=== PATIENT | male | born 1995 | race Two or more races ===

== ENCOUNTER 2016-10-31 18:35 | Emergency (ER) | payer SELFPAY ==
--- NOTE | 2016-10-31 18:47 | ER Document Report ---
ED Medical Screen (RME) - General Stated Complaint: COLLAR BONE PAIN Notes: wrestling for fun last Pain at his right SC joint able to move arm but painful I have greeted and performed a rapid initial assessment of this patient. A comprehensive ED assessment and evaluation of the patient, analysis of test results and completion of the medical decision making process will be conducted by additional ED providers. - Related Data Allergies/Adverse Reactions: No Known Allergies Allergy (Verified 07/20/12 19:41) Past Medical History Psychiatric Medical History: Reports: Hx Attention Deficit Hyperactivity Disorder - Immunizations Immunizations up to date: Yes Hx Diphtheria, Pertussis, Tetanus Vaccination: Yes Physical Exam - Vital signs Vitals: Temp Pulse Resp BP Pulse Ox 98.1 F 90 18 126/73 H 100 10/31/16 18:43 10/31/16 18:43 10/31/16 18:43 10/31/16 18:43 10/31/16 18:43 Course - Vital Signs Vital signs: Temp Pulse Resp BP Pulse Ox 98.1 F 90 18 126/73 H 100 10/31/16 18:43 10/31/16 18:43 10/31/16 18:43 10/31/16 18:43 10/31/16 18:43
[2016-10-31] MEDS ORDERED: IBUPROFEN 800 MG TABLET PO ONE (18:48)
[2016-10-31] MEDS ORDERED: HYDROCODONE/ACETAMINOPHEN 5-325 MG 6 TAB/DSPK PO PRN (20:51)
--- NOTE | 2016-10-31 20:52 | ER Document Report ---
HPI - HPI Patient complains to provider of: right shoulder pain Pain Level: 5 Context: Patient is a 21-year-old male that comes emergency department for chief complaint of pain to the right collarbone area at the insertion at the sternum, patient states he was wrestling and the night after wrestling he began to have pain, he states that he has pain whenever he moves his shoulder in that area. Patient denies any numbness or weakness, denies any other symptoms or injuries. He denies any daily medications. - DERM Skin Color: Normal Past Medical History - General Information source: Patient - Social History Smoking Status: Never Smoker Chew tobacco use (# tins/day): No Frequency of alcohol use: None Drug Abuse: None Lives with: Family Family History: Reviewed & Not Pertinent Patient has suicidal ideation: No Patient has homicidal ideation: No Renal/ Medical History: Denies: Hx Peritoneal Dialysis Psychiatric Medical History: Reports: Hx Attention Deficit Hyperactivity Disorder Surgical Hx: Negative - Immunizations Immunizations up to date: Yes Hx Diphtheria, Pertussis, Tetanus Vaccination: Yes Vertical Provider Document - CONSTITUTIONAL General Appearance: WD/WN, No Apparent Distress - INFECTION CONTROL TRAVEL OUTSIDE OF THE [place] IN LAST 30 DAYS: No - HEENT HEENT: Atraumatic, Normocephalic - NECK Neck: Normal Inspection - RESPIRATORY Respiratory: Breath Sounds Normal, No Respiratory Distress O2 Sat by Pulse Oximetry: 100 - CARDIOVASCULAR Cardiovascular: Regular Rate, Regular Rhythm - GI/ABDOMEN Gastrointestinal: Abdomen Soft, Abdomen Non-Tender - BACK Back: Normal Inspection - MUSCULOSKELETAL/EXTREMETIES Musculoskeletal/Extremeties: Tender - Tender with palpation over the right SC joint, pain over the anterior chest wall minimally, range of motion of the shoulder is intact, normal strength of the right arm, normal distal neurovascular exam. Is noted. - NEURO Level of Consciousness: Awake, Alert, Appropriate - DERM Integumentary: Warm, Dry, No Rash Course - Vital Signs Vital signs: Temp Pulse Resp BP Pulse Ox 98.1 F 90 18 126/73 H 100 10/31/16 18:43 10/31/16 18:43 10/31/16 18:43 10/31/16 18:43 10/31/16 18:43 - Diagnostic Test Radiology reviewed: Image reviewed, Reports reviewed Discharge - Discharge Clinical Impression: Right shoulder pain Qualifiers: Chronicity: acute Qualified Code(s): M25.511 - Pain in right shoulder Condition: Stable Disposition: HOME, SELF-CARE Additional Instructions: Examination and symptoms are consistent with strain of the sternoclavicular joint. X-ray does not show separation, fracture, or any other concerning findings. Rest the shoulder, take the anti-inflammatory daily as prescribed, take muscle relaxer as prescribed. Ice the painful area at the joint 3-4 times a day if possible. Rest the shoulder as much as possible until symptoms resolve. Follow-up with orthopedics if symptoms continue. Return to emergency department for any concerning or worsening symptoms. Prescriptions: Methocarbamol [Robaxin 750 mg Tablet] 750 mg PO Q6 #20 tablet Naproxen 500 mg PO BID #20 tablet Forms: Return to Work Referrals: NAYA LOUISE MD [Primary Care Provider] - Follow up as needed
[2016-10-31 21:45] VITALS: BP 122/73
== END 2016-10-31 21:45 | disposition home or self-care (01) ==
LOC: ER 18:35
DX: M25.511 Pain in right shoulder (principal)
CPT/HCPCS: 99283

== ENCOUNTER 2017-12-31 22:47 | Emergency (ER) | payer SELFPAY ==
[2018-01-01] MEDS ORDERED: NORMAL SALINE 1000 ML 1,000 ML IV ONE (01:05)
[2018-01-01] MEDS ORDERED: ONDANSETRON HCL INJ/PF 4 MG/2 ML SDV IV ONE (01:06)
[2018-01-01 01:15] LABS: ABSOLUTE LYMPHOCYTES (AUTO) 1.3 10^3/uL (0.5-4.7); ABSOLUTE MONOCYTES (AUTO) 0.8 10^3/uL (0.1-1.4); BASOPHILS % (AUTO) 0.2 % (0-2); EOSINOPHILS % (AUTO) 0.3 % (0-6); HEMATOCRIT 49.1 % (37.9-51.0); HEMOGLOBIN 16.9 g/dL (13.5-17.0); LYMPHOCYTES % (AUTO) 10.3 % (13-45); MEAN CORPUSCULAR HEMOGLOBIN 32.3 pg (27.0-33.4); MEAN CORPUSCULAR HGB CONC 34.4 g/dL (32.0-36.0); MEAN CORPUSCULAR VOLUME 94 fl (80-97); MONOCYTES % (AUTO) 6.9 % (3-13); PLATELET COUNT 306 10^3/uL (150-450); RED BLOOD COUNT 5.24 10^6/uL (4.35-5.55); RED CELL DISTRIBUTION WIDTH 12.8 % (11.5-14.0); SEGMENTED NEUTROPHILS % (AUTO) 82.3 % (42-78); TOTAL CELLS COUNTED % (AUTO) 100 %; WHITE BLOOD COUNT 12.2 10^3/uL (4.0-10.5)
[2018-01-01 01:27] LABS: APPEARANCE,URINE CLEAR; BILIRUBIN,URINE NEGATIVE (NEGATIVE); COLOR,URINE AMBER; GLUCOSE, URINE NEGATIVE (NEGATIVE); KETONES,URINE 100 mg/dL (NEGATIVE); LEUKOCYTE ESTERASE,URINE NEGATIVE (NEGATIVE); NITRITE,URINE NEGATIVE (NEGATIVE); PROTEIN,URINE 30 mg/dL (NEGATIVE); URINE SPECIFIC GRAVITY 1.032; UROBILINOGEN,URINE NEGATIVE mg/dL (<2.0)
[2018-01-01 01:44] LABS: ALANINE AMINOTRANSFERASE 49 U/L (21-72); ALKALINE PHOSPHATASE 50 U/L (38-126); ANION GAP 16 (5-19); ASPARTATE AMINO TRANSFERASE 22 U/L (17-59); BILIRUBIN,DIRECT 0.2 mg/dL (0.0-0.4); BILIRUBIN,TOTAL 1.1 mg/dL (0.2-1.3); BLOOD UREA NITROGEN 19 mg/dL (7-20); CALCIUM 9.6 mg/dL (8.4-10.2); CARBON DIOXIDE 23 mmol/L (22-30); CHLORIDE 104 mmol/L (98-107); GLUCOSE 102 mg/dL (75-110); LIPASE 32.3 U/L (23-300); POTASSIUM 4.4 mmol/L (3.6-5.0); SODIUM 142.7 mmol/L (137-145)
[2018-01-01] MEDS ORDERED: MAG HYDROX/AL HYDROX/SIMETH SUSP 30 ML UDCUP PO ONE (02:57)
[2018-01-01] MEDS ORDERED: FAMOTIDINE 20 MG TABLET PO ONE (02:57)
[2018-01-01] MEDS ORDERED: LIDOCAINE 2% VISCOUS SOLN 20 ML UDCUP PO ONE (02:57)
[2018-01-01] MEDS ORDERED: ONDANSETRON ODT 4 MG TAB (6 TAB/ER DISP) PO PRN (02:57)
[2018-01-01] MEDS ORDERED: METOCLOPRAMIDE HCL ORAL SOLN 10 MG/10 ML UDCUP PO ONE (02:57)
--- NOTE | 2018-01-01 02:59 | ER Document Report ---
ED General - General Chief Complaint: Nausea/Vomiting Stated Complaint: NAUSEA Time Seen by Provider: 01/01/18 01:05 Notes: Patient is a 22-year-old male with a past medical history of developmental delay , ADHD and bipolar disorder who presents with 24 hours of nausea, burping, reflux and epigastric abdominal pain. Abdominal pain is described as a mild, aching, burning pain. Symptoms have overall been unchanged since onset. Symptoms started after eating pizza have been constant since that time. Patient has not tried anything to improve his symptoms. Any attempt to eating worsens his symptoms. He has a history of recurrent similar symptoms in the past. He has not seen his primary care doctor regarding today's concerns. He notes that he has not actually vomited only feels extremely nauseated. He denies any use of NSAIDs but admits to significant dietary indiscretion. No chest pain, shortness of breath, fever or constitutional symptoms. TRAVEL OUTSIDE OF THE [place] IN LAST 30 DAYS: No - Related Data Allergies/Adverse Reactions: No Known Allergies Allergy (Verified 07/20/12 19:41) Past Medical History - General Information source: Patient, Relative - Social History Smoking Status: Never Smoker Frequency of alcohol use: None Drug Abuse: None Lives with: Family Family History: Reviewed & Not Pertinent Renal/ Medical History: Denies: Hx Peritoneal Dialysis Psychiatric Medical History: Reports: Hx Attention Deficit Hyperactivity Disorder - Immunizations Immunizations up to date: Yes Hx Diphtheria, Pertussis, Tetanus Vaccination: Yes Review of Systems - Review of Systems Notes: Constitutional: Negative for fever. HENT: Negative for sore throat. Eyes: Negative for visual changes. Cardiovascular: Negative for chest pain. Respiratory: Negative for shortness of breath. Gastrointestinal: Positive for abdominal pain and nausea Genitourinary: Negative for dysuria. Musculoskeletal: Negative for back pain. Skin: Negative for rash. Neurological: Negative for headaches, weakness or numbness. 10 point ROS negative except as marked above and in HPI. Physical Exam - Vital signs Vitals: Temp Pulse Resp BP Pulse Ox 98.1 F 75 20 134/89 H 99 12/31/17 23:17 12/31/17 23:17 12/31/17 23:17 12/31/17 23:17 12/31/17 23:17 Interpretation: Normal Notes: PHYSICAL EXAMINATION: GENERAL: Well-appearing, well-nourished and in no acute distress. HEAD: Atraumatic, normocephalic. EYES: Pupils equal round and reactive to light, extraocular movements intact, sclera anicteric, conjunctiva are normal. ENT: nares patent, oropharynx clear without exudates. Moderately dry mucous membranes. NECK: Normal range of motion, supple without lymphadenopathy LUNGS: Breath sounds clear to auscultation bilaterally and equal. No wheezes rales or rhonchi. HEART: Regular rate and rhythm without murmurs ABDOMEN: Soft, mild epigastric abdominal pain no other localized areas of pain, normoactive bowel sounds. No guarding, no rebound. No masses appreciated. EXTREMITIES: Normal range of motion, no pitting or edema. No cyanosis. NEUROLOGICAL: No focal neurological deficits. Moves all extremities spontaneously and on command. PSYCH: Normal mood, normal affect. SKIN: Warm, Dry, normal turgor, no rashes or lesions noted. Course - Re-evaluation Re-evalutation: 01/01/18 02:57 Patient presents with epigastric abdominal pain with associated reflux symptoms most consistent with likely gastritis. Patient has no focal abdominal tenderness on examination. Bedside right upper quadrant ultrasound does not demonstrate any evidence of acute cholecystitis or cholelithiasis. Lipase is normal. No LFT changes. Based on history and exam, I do not suspect ACS, pulmonary embolus, SBO, mesenteric ischemia, acute pancreatitis, biliary pathology, or an abdominal aortic dissection. Patient has had improvement of symptoms here with a GI cocktail. At this time will discharge with return precautions and follow-up recommendations. Verbal discharge instructions given a the bedside and opportunity for questions given. Medication warnings reviewed. Patient is in agreement with this plan and has verbalized understanding of return precautions and the need for primary care follow-up in the next 24-72 hours. - Vital Signs Vital signs: Temp Pulse Resp BP Pulse Ox 98.1 F 75 20 134/89 H 99 12/31/17 23:17 12/31/17 23:17 12/31/17 23:17 12/31/17 23:17 12/31/17 23:17 - Laboratory Result Diagrams: 01/01/18 00:55 01/01/18 00:55 Laboratory results interpreted by me: 01/01/18 01/01/18 00:55 00:55 WBC 12.2 H Seg Neutrophils % 82.3 H Lymphocytes % 10.3 L Absolute Neutrophils 10.0 H Urine Protein 30 H Urine Ketones 100 H Discharge - Discharge Clinical Impression: Nausea Gastroesophageal reflux Qualifiers: Esophagitis presence: esophagitis presence not specified Qualified Code(s): K21.9 - Gastro-esophageal reflux disease without esophagitis Condition: Good Disposition: HOME, SELF-CARE Additional Instructions: Your symptoms appear to be most consistent with stomach or upper intestinal irritation. Please begin taking famotidine 40 mg in the morning and 40 mg at night. This medicine can be purchased directly [id number]. You may also take medicine such as Pepto-Bismol or Tums to assist with your pain. Please return to emergency department immediately if you have worsening of your pain, shortness of breath, vomiting, become unable to exert yourself due to pain or difficulty breathing, you pass out, or have any pain that radiates into your arms, jaw, or back. Please also return if you have any additional symptoms that are concerning to you. As we have discussed, the most important thing is lifestyle changes. You need to avoid smoking, sodas, tea, coffee, alcohol, spicy foods, and acidic foods such as citrus fruits, tomato based products, berries, and most fruit juices. Prescriptions: Famotidine 40 mg PO BID #60 tablet
[2018-01-01 03:59] VITALS: BP 128/81
== END 2018-01-01 03:36 | disposition home or self-care (01) ==
LOC: ER 22:47
DX: R11.0 Nausea (principal); K21.9 Gastro-esophageal reflux disease without esophagitis; R10.13 Epigastric pain; R62.50 Unspecified lack of expected normal physiological development in childhood; F90.9 Attention-deficit hyperactivity disorder, unspecified type
CPT/HCPCS: 99284; 96361; 96374; 36415; 83690; 85025; 80053; 81001; J3490; J2405; J7030

== ENCOUNTER 2018-01-03 20:55 | Emergency (ER) | payer SELFPAY ==
[2018-01-03] MEDS ORDERED: PROMETHAZINE HCL 25 MG TABLET PO ONE (23:41)
[2018-01-03] MEDS ORDERED: SUCRALFATE 1 GM TABLET PO ONE (23:41)
--- NOTE | 2018-01-03 23:44 | ER Document Report ---
ED Medical Screen (RME) - General Chief Complaint: Nausea/Vomiting Stated Complaint: VOMITING Time Seen by Provider: 01/03/18 23:38 Notes: 22-year-old male, chief complaint of upper abdominal pain and vomiting, states he was seen a few days ago here, felt better initially but then started having pain, nausea, and vomiting again. Vomited multiple times since noon. Had a bowel movement which was dark a couple of days ago. Past medical history of developmental delay, ADHD. TRAVEL OUTSIDE OF THE [place] IN LAST 30 DAYS: No - Related Data Allergies/Adverse Reactions: No Known Allergies Allergy (Verified 01/03/18 20:57) Past Medical History Renal/ Medical History: Denies: Hx Peritoneal Dialysis Psychiatric Medical History: Reports: Hx Attention Deficit Hyperactivity Disorder - Immunizations Immunizations up to date: Yes Hx Diphtheria, Pertussis, Tetanus Vaccination: Yes Physical Exam - Vital signs Vitals: Temp Pulse Resp BP Pulse Ox 98.6 F 68 20 139/87 H 98 01/03/18 21:05 01/03/18 21:05 01/03/18 21:05 01/03/18 21:05 01/03/18 21:05 - Abdominal Tenderness: Tender - Upper abdominal tenderness generally, lower abdomen benign , limited exam from sitting position Course - Vital Signs Vital signs: Temp Pulse Resp BP Pulse Ox 98.6 F 68 20 139/87 H 98 01/03/18 21:05 01/03/18 21:05 01/03/18 21:05 01/03/18 21:05 01/03/18 21:05
[2018-01-04 00:27] LABS: ABSOLUTE LYMPHOCYTES (AUTO) 0.8 10^3/uL (0.5-4.7); ABSOLUTE MONOCYTES (AUTO) 0.5 10^3/uL (0.1-1.4); ABSOLUTE NEUT (AUTO) 5.9 10^3/uL (1.7-8.2); BASOPHILS % (AUTO) 0.2 % (0-2); EOSINOPHILS % (AUTO) 0.3 % (0-6); HEMATOCRIT 48.8 % (37.9-51.0); HEMOGLOBIN 17.4 g/dL (13.5-17.0); LYMPHOCYTES % (AUTO) 11.6 % (13-45); MEAN CORPUSCULAR HEMOGLOBIN 32.6 pg (27.0-33.4); MEAN CORPUSCULAR HGB CONC 35.5 g/dL (32.0-36.0); MEAN CORPUSCULAR VOLUME 92 fl (80-97); MONOCYTES % (AUTO) 6.7 % (3-13); PLATELET COUNT 326 10^3/uL (150-450); RED BLOOD COUNT 5.32 10^6/uL (4.35-5.55); RED CELL DISTRIBUTION WIDTH 12.8 % (11.5-14.0); SEGMENTED NEUTROPHILS % (AUTO) 81.2 % (42-78); TOTAL CELLS COUNTED % (AUTO) 100 %; WHITE BLOOD COUNT 7.3 10^3/uL (4.0-10.5)
[2018-01-04 00:35] LABS: ALANINE AMINOTRANSFERASE 49 U/L (21-72); ALKALINE PHOSPHATASE 49 U/L (38-126); ANION GAP 15 (5-19); ASPARTATE AMINO TRANSFERASE 17 U/L (17-59); BILIRUBIN,DIRECT 0.3 mg/dL (0.0-0.4); BILIRUBIN,TOTAL 1.3 mg/dL (0.2-1.3); BLOOD UREA NITROGEN 21 mg/dL (7-20); CALCIUM 10.4 mg/dL (8.4-10.2); CARBON DIOXIDE 25 mmol/L (22-30); CHLORIDE 100 mmol/L (98-107); GLUCOSE 105 mg/dL (75-110); LIPASE 45.2 U/L (23-300); POTASSIUM 4.2 mmol/L (3.6-5.0); TOTAL PROTEIN 7.2 g/dL (6.3-8.2)
--- NOTE | 2018-01-04 01:12 | ER Document Report ---
ED General - General Chief Complaint: Nausea/Vomiting Stated Complaint: VOMITING Time Seen by Provider: 01/03/18 23:38 Mode of Arrival: Ambulatory Information source: Patient, Parent Notes: 22-year-old male with a history of ADHD, bipolar disorder, developmental delay since with his mother with chief complaint of upper abdominal pain and vomiting , states he was seen a few days ago here, felt better initially but then started having pain, nausea, and vomiting again. Vomited multiple times since noon. Had a bowel movement which was dark a couple of days ago, states his last bowel movement which was today was normal and color and caliber. Mother is at the bedside and provides the majority of the history. She states that 3 weeks ago he had an episode of nausea and vomiting that lasted 2 days and resolved. Then again 5 days ago he began complaining of nausea, abdominal pain. Mother not seen him vomit. She states "he will let himself vomit because he does not like it". He has had episodes of dry heaving. He is also complaining of associated diffuse lower back pain. He denies fever, sore throat , headache, chest pain, shortness of breath, lower abdominal pain, dysuria, hematuria. He admits to poor p.o. intake. TRAVEL OUTSIDE OF THE [place] IN LAST 30 DAYS: No - HPI Onset: Last week Onset/Duration: Gradual, Intermittent, Persistent - persistent today Quality of pain: Achy Severity: Mild Associated symptoms: Body/muscle aches - back Pain, Nausea. denies: Chest pain , Diarrhea, Fever, Hurts to breath, Vomiting Exacerbated by: Food Relieved by: Denies Similar symptoms previously: Yes Recently seen / treated by doctor: Yes - 01/01/18 - Related Data Allergies/Adverse Reactions: No Known Allergies Allergy (Verified 01/03/18 20:57) Past Medical History - General Information source: Patient, Parent, [facility] Records - Social History Smoking Status: Unknown if Ever Smoked Chew tobacco use (# tins/day): No Frequency of alcohol use: Rare Drug Abuse: None Family History: Reviewed & Not Pertinent Patient has suicidal ideation: No Patient has homicidal ideation: No - Medical History Medical History: Other - ADHD, developmental delay, bipolar disorder. Renal/ Medical History: Denies: Hx Peritoneal Dialysis Psychiatric Medical History: Reports: Hx Attention Deficit Hyperactivity Disorder - Immunizations Immunizations up to date: Yes Hx Diphtheria, Pertussis, Tetanus Vaccination: Yes Review of Systems - Review of Systems Notes: admits to abdominal pain, nausea, lower back pain. He denies fever, sore throat , headache, chest pain, shortness of breath, lower abdominal pain, dysuria, hematuria, diarrhea, black and bloody stools. He admits to poor p.o. intake. Physical Exam - Vital signs Vitals: Temp Pulse Resp BP Pulse Ox 98.6 F 68 20 139/87 H 98 01/03/18 21:05 01/03/18 21:05 01/03/18 21:05 01/03/18 21:05 01/03/18 21:05 Interpretation: Normal, Hypertensive. No: Febrile - Notes Notes: PHYSICAL EXAMINATION: GENERAL: Well-appearing, well-nourished and in no acute distress. Does not appear toxic or dehydrated. HEAD: Atraumatic, normocephalic. Moist mucous membranes EYES: Pupils equal round and reactive to light, extraocular movements intact, sclera anicteric, conjunctiva are normal. ENT: Nares patent, oropharynx clear without exudates. Moist mucous membranes. NECK: Normal range of motion, supple without lymphadenopathy LUNGS: Breath sounds clear to auscultation bilaterally and equal. No wheezes rales or rhonchi. HEART: Regular rate and rhythm without murmurs ABDOMEN: Soft, nontender, nondistended abdomen. No guarding, no rebound. No masses appreciated. Musculoskeletal: Normal range of motion, no pitting or edema. No cyanosis. No CVA tenderness NEUROLOGICAL: Cranial nerves grossly intact. Normal speech, normal gait. Normal sensory, motor exams PSYCH: Normal mood, normal affect. SKIN: Warm, Dry, normal turgor, no rashes or lesions noted. - General General appearance: Appears well, Alert In distress: None Notes: PHYSICAL EXAMINATION: GENERAL: Well-appearing, well-nourished and in no acute distress. HEAD: Atraumatic, normocephalic. EYES: Pupils equal round and reactive to light, extraocular movements intact, sclera anicteric, conjunctiva are normal. ENT: Nares patent, oropharynx clear without exudates. Moist mucous membranes. NECK: Normal range of motion, supple without lymphadenopathy LUNGS: Breath sounds clear to auscultation bilaterally and equal. No wheezes rales or rhonchi. HEART: Regular rate and rhythm without murmurs ABDOMEN: Soft, nontender, nondistended abdomen. No guarding, no rebound. No masses appreciated. Normal bowel sounds. : Declining rectal exam Musculoskeletal: Diffuse tenderness to palpation in the lumbar region, no spinal tenderness, bilateral CVA tenderness. Normal range of motion, no pitting or edema. No cyanosis. NEUROLOGICAL: Cranial nerves grossly intact. Normal speech, normal gait. Normal sensory, motor exams PSYCH: Normal mood, normal affect. SKIN: Warm, Dry, normal turgor, no rashes or lesions noted. Course - Re-evaluation Re-evalutation: Abdomen Ultrasound 01/03/18 23:44 IMPRESSION: 1. No gallstones. 2. Hepatic steatosis. Acute Abdomen Series 01/04/18 01:06 IMPRESSION: 1. No acute pulmonary process. 2. Nonobstructive bowel gas pattern. Laboratory 01/03/18 01/03/18 01/04/18 23:53 23:53 01:11 WBC 7.3 RBC 5.32 Hgb 17.4 H Hct 48.8 MCV 92 MCH 32.6 MCHC 35.5 RDW 12.8 Plt Count 326 Seg Neutrophils % 81.2 H Lymphocytes % 11.6 L Monocytes % 6.7 Eosinophils % 0.3 Basophils % 0.2 Absolute Neutrophils 5.9 Absolute Lymphocytes 0.8 Absolute Monocytes 0.5 Absolute Eosinophils 0.0 Absolute Basophils 0.0 Sodium 140.0 Potassium 4.2 Chloride 100 Carbon Dioxide 25 Anion Gap 15 BUN 21 H Creatinine 1.06 Est GFR ( Amer) > 60 Est GFR (Non-Af Amer) > 60 Glucose 105 Calcium 10.4 H Total Bilirubin 1.3 Direct Bilirubin 0.3 Neonat Total Bilirubin Not Reportable Neonat Direct Bilirubin Not Reportable Neonat Indirect Bili Not Reportable AST 17 ALT 49 Alkaline Phosphatase 49 Total Protein 7.2 Albumin 5.0 Lipase 45.2 Urine Color PRABHAKAR Urine Appearance SLIGHTLY-CLOUDY Urine pH 5.0 Ur Specific [place] 1.033 Urine Protein 30 H Urine Glucose (UA) NEGATIVE Urine Ketones 80 H Urine Blood NEGATIVE Urine Nitrite NEGATIVE Urine Bilirubin NEGATIVE Urine Urobilinogen 2.0 H Ur Leukocyte Esterase NEGATIVE Urine WBC (Auto) 1 Urine RBC (Auto) 2 Urine Mucus (Auto) MANY Urine Ascorbic Acid NEGATIVE 01/04/18 04:19 Patient tolerating fluids. He has no episodes of emesis during his ED course. 01/05/18 00:02 22-year-old male with a history of ADHD, bipolar disorder, developmental delay since with his mother with chief complaint of upper abdominal pain and vomiting , states he was seen a few days ago here, felt better initially but then started having pain, nausea, and vomiting again. Reports that he vomited multiple times since noon. Had a bowel movement which was dark a couple of days ago, states his last bowel movement which was today was normal and color and caliber. Mother is at the bedside and provides the majority of the history. This was a difficult patient to care for. He will not answer questions, he has his head covered in the blanket the majority of my exam. Vital signs stable. He is afebrile, normotensive and not hypoxic. He is in no acute distress. He does not appear toxic or dehydrated. He has a normal physical exam. He continually states that he has vomited although all of his emesis bags are empty. CBC is without leukocytosis or anemia, CMP is without electrolyte abnormality. UA shows 80 ketones. An upper quadrant ultrasound was obtained and showed no evidence of cholelithiasis or cholecystitis. Acute abdominal series showed no obstructive pattern. Patient refused to drink fluids the entire time he was here until we told him that we would have to place an IV and administer IV fluids. At that time patient began drinking water and tolerated it well. Mother was noted to be very upset with him that he waited this long to finally drink fluids. Patient was discharged home in stable conditions with recommendations to continue p.o. fluids. 01/05/18 00:03 - Vital Signs Vital signs: Temp Pulse Resp BP Pulse Ox 98.6 F 71 17 128/88 H 99 01/04/18 04:26 01/04/18 04:26 01/04/18 04:26 01/04/18 04:26 01/04/18 04:26 - Laboratory Result Diagrams: 01/03/18 23:53 01/03/18 23:53 Laboratory results interpreted by me: 01/03/18 01/03/18 01/04/18 23:53 23:53 01:11 Hgb 17.4 H Seg Neutrophils % 81.2 H Lymphocytes % 11.6 L BUN 21 H Calcium 10.4 H Urine Protein 30 H Urine Ketones 80 H Urine Urobilinogen 2.0 H - Diagnostic Test Radiology reviewed: Image reviewed, Reports reviewed Discharge - Discharge Clinical Impression: Dehydration Nausea & vomiting Qualifiers: Vomiting type: unspecified Vomiting Intractability: non-intractable Qualified Code(s): R11.2 - Nausea with vomiting, unspecified Condition: Good Disposition: HOME, SELF-CARE Admitting Provider: Ben Instructions: Antinausea Medication ([facility]), Viral Syndrome ([facility]), Vomiting ([facility]) Prescriptions: Ondansetron [Zofran Odt 4 mg Tablet] 1 - 2 tab PO Q4H PRN #15 tab.rapdis PRN Reason: For Nausea/Vomiting Promethazine HCl [Phenergan 25 mg Tablet] 25 mg PO Q8H #10 tablet Referrals: NAYA LOUISE MD [Primary Care Provider] - Follow up as needed
[2018-01-04 01:33] LABS: APPEARANCE,URINE SLIGHTLY-CLOUDY; BILIRUBIN,URINE NEGATIVE (NEGATIVE); COLOR,URINE AMBER; GLUCOSE, URINE NEGATIVE (NEGATIVE); KETONES,URINE 80 mg/dL (NEGATIVE); LEUKOCYTE ESTERASE,URINE NEGATIVE (NEGATIVE); NITRITE,URINE NEGATIVE (NEGATIVE); PROTEIN,URINE 30 mg/dL (NEGATIVE); URINE SPECIFIC GRAVITY 1.033
--- NOTE | 2018-01-04 01:35 | RADIOLOGY REPORT (SQ) ---
EXAM DESCRIPTION: ACUTE ABDOMEN SERIES CLINICAL HISTORY: abdominal pain COMPARISON: None. FINDINGS: Single view of the chest with upright and spine views of the abdomen. Cardiomediastinal silhouette has normal size and contour. No consolidation, pneumothorax, or pleural effusion. No free intraperitoneal air. No abnormal calcifications. No dilated loops of large or small bowel. Moderate stool burden. No acute osseous abnormalities. No definite organomegaly. IMPRESSION: 1. No acute pulmonary process. 2. Nonobstructive bowel gas pattern.
--- NOTE | 2018-01-04 02:01 | RADIOLOGY REPORT (SQ) ---
EXAM DESCRIPTION: U/S ABDOMEN LIMITED W/O DOP CLINICAL HISTORY: epigastric pain, vomiting COMPARISON: None. TECHNIQUE: Real-time sonographic images of the right upper abdomen were obtained using a curved multihertz transducer. FINDINGS: Pancreas: The visualized portions of the pancreas are unremarkable. Vascular: The visualized portions of the aorta and IVC are unremarkable. Liver: The liver has normal contour and increased echogenicity. Hepatopedal flow in the portal vein. The common bile duct measures 0.4 cm. Gallbladder: The gallbladder has a normal appearance. No gallstones identified. No wall thickening or pericholecystic fluid. Right Kidney: The right kidney measures 11.1 cm in length. No hydronephrosis, solid renal mass, or shadowing calculi. IMPRESSION: 1. No gallstones. 2. Hepatic steatosis.
[2018-01-04 04:32] VITALS: BP 128/88
== END 2018-01-04 04:32 | disposition home or self-care (01) ==
LOC: ER 20:55
DX: E86.0 Dehydration (principal); R11.2 Nausea with vomiting, unspecified; M79.1 Myalgia; R10.10 Upper abdominal pain, unspecified
CPT/HCPCS: 36415; 74022; 76705; 80053; 81001; 83690; 85025; 99284

== ENCOUNTER 2018-02-08 11:27 | Day surgery (SDC) | payer SELFPAY ==
[~2018-02-08 11:27] MED LIST: DIPHENHYDRAMINE HCL 50 MG/ML VIAL ONE; EPINEPHRINE INJ 1 MG/10 ML DISP.SYRIN ONE; FLUMAZENIL INJ 0.5 MG/5 ML VIAL ONE; GLUCAGON,HUMAN RECOMB 1 MG INJ ONE; MIDAZOLAM 2 MG/2 ML INJ ONE; NALOXONE HCL INJ/PF 0.4 MG/1 ML SDV ONE; ONDANSETRON HCL INJ/PF 4 MG/2 ML SDV ONE
[2018-02-08] MEDS: FENTANYL CITRATE INJ/PF 100 MCG/2 ML AMPUL ONE ×2 (12:23→12:25)
--- NOTE | 2018-02-08 12:34 | Operative Report ---
Operative Report DATE OF SURGERY: 02/08/18 Operative Report: The risks benefits and alternatives of the procedure explained to the patient in detail and informed consent is obtained.A GIF Olympus video scope was inserted into the patient's mouth and hypopharynx ,the esophagus is identified intubated and insufflated, the scope was then advanced through the esophagus stomach and duodenum ,retroflexion maneuver is done, the esophagus stomach and first and second portions of the duodenum examined PREOPERATIVE DIAGNOSIS: Nausea vomiting, dyspepsia rule out Helicobacter pylori POSTOPERATIVE DIAGNOSIS: Esophagitis. Gastritis status post biopsy rule out Helicobacter pylori OPERATION: EGD with biopsy SURGEON: RADHA TANNER ANESTHESIA: Moderate Sedation - 25 mg of Benadryl, 4 mg of Versed, 75 mcg of fentanyl. Conscious sedation monitoring time 30 minutes. TISSUE REMOVED OR ALTERED: As noted above. COMPLICATIONS: None. ESTIMATED BLOOD LOSS: None. INTRAOPERATIVE FINDINGS: As noted above. PROCEDURE: Patient tolerated procedure well. No immediate postprocedure complications are noted. Patient discharged in good condition. Discharge date 02/08/2018. Discharge diet: Regular. Discharge activity: Regular. 2-3 week follow-up to discuss findings. Patient is instructed call the office or proceed to the emergency room should there be any further problems or questions. We will wait on pathology.
[2018-02-08 13:59] VITALS: BP 123/86
== END 2018-02-08 13:40 | disposition home or self-care (01) ==
LOC: END 11:27
PROVIDERS: ATTEND Internal Medicine Gastroenterology
DX: K20.9 Esophagitis, unspecified (principal); K29.70 Gastritis, unspecified, without bleeding; F17.210 Nicotine dependence, cigarettes, uncomplicated; Z79.899 Other long term (current) drug therapy
CPT/HCPCS: 43239; 88342 ×2; 88305 ×2; J2250; J1200; J3010; J0171; J1610; J2310; J2405; J3490

== ENCOUNTER 2018-02-14 14:40 | Emergency (ER) | payer SELFPAY ==
--- NOTE | 2018-02-14 15:30 | ER Document Report ---
ED Medical Screen (RME) - General Chief Complaint: Abdominal Pain Stated Complaint: STOMACH PAIN,NAUSEA Time Seen by Provider: 02/14/18 15:23 Mode of Arrival: Ambulatory Information source: Patient, Parent Notes: 23-year-old male with a history of bipolar disorder, marijuana abuse, ADHD, reflux presents for the fourth time since December with the complaint of nausea, vomiting and abdominal pain. Patient was sent in by Dr. Cordova of gastroenterology for a CAT scan and repeat blood work. Patient has recently under went an endoscopy with biopsies which the mother reports to have been normal. She states that he was doing better while taking his reflux medication but then stopped. He denies any current marijuana use. Abdominal pain is reported to be relieved with hot showers, mother reports that the patient has been refusing to eat or drink anything. Patient is scheduled for a HIDA scan in 2 days. I have greeted and performed a rapid medical assessment of the patient. A comprehensive evaluation and assessment will be performed by another ED provider. Medical decision making, lab review/xrays if performed will be reviewed by the ED provider assuming care of the patient. PHYSICAL EXAMINATION: GENERAL: Well-appearing, well-nourished and in no acute distress. HEAD: Atraumatic, normocephalic. EYES: Pupils equal round extraocular movements intact, conjunctiva are normal. ENT: Nares patent NECK: Normal range of motion LUNGS: No respiratory distress Musculoskeletal: Normal range of motion NEUROLOGICAL: Normal speech, normal gait. PSYCH: Normal mood, normal affect. SKIN: Warm, Dry, normal turgor, no rashes or lesions noted. TRAVEL OUTSIDE OF THE [place] IN LAST 30 DAYS: No - HPI Onset: Other Onset/Duration: Intermittent, Worse Quality of pain: Burning, Cramping Associated Symptoms: Nausea, Vomiting. denies: Diarrhea Exacerbated by: Denies Relieved by: Other - Hot showers Similar symptoms previously: Yes Recently seen / treated by doctor: Yes - Saw gastroenterology at [facility] [place] today - Related Data Smoking: Non-smoker Frequency of alcohol use: Occasional Drug Abuse: Marijuana Allergies/Adverse Reactions: No Known Allergies Allergy (Verified 02/14/18 14:42) Past Medical History - Social History Chew tobacco use (# tins/day): No Frequency of alcohol use: None Drug Abuse: Marijuana - Past Medical History Cardiac Medical History: Denies: Hx Coronary Artery Disease, Hx Heart Attack, Hx Hypertension Pulmonary Medical History: Denies: Hx Asthma, Hx Bronchitis, Hx COPD, Hx Pneumonia Neurological Medical History: Denies: Hx Cerebrovascular Accident, Hx Seizures Renal/ Medical History: Denies: Hx Peritoneal Dialysis Musculoskeltal Medical History: Denies Hx Arthritis Psychiatric Medical History: Reports: Hx Attention Deficit Hyperactivity Disorder - Immunizations Immunizations up to date: Yes Hx Diphtheria, Pertussis, Tetanus Vaccination: Yes Physical Exam - Vital signs Vitals: Temp Pulse Resp BP Pulse Ox 98.4 F 98 18 139/93 H 98 02/14/18 14:49 02/14/18 14:49 02/14/18 14:49 02/14/18 14:49 02/14/18 14:49 Course - Vital Signs Vital signs: Temp Pulse Resp BP Pulse Ox 98.4 F 98 18 139/93 H 98 02/14/18 14:49 02/14/18 14:49 02/14/18 14:49 02/14/18 14:49 02/14/18 14:49
[2018-02-14] MEDS ORDERED: ONDANSETRON 4 MG TAB.RAPDIS PO ONE (15:37)
[2018-02-14 16:07] LABS: ABSOLUTE EOSINOPHILS # (AUTO) 0.1 10^3/uL (0.0-0.6); ABSOLUTE LYMPHOCYTES (AUTO) 1.1 10^3/uL (0.5-4.7); ABSOLUTE MONOCYTES (AUTO) 0.8 10^3/uL (0.1-1.4); ABSOLUTE NEUT (AUTO) 8.7 10^3/uL (1.7-8.2); BASOPHILS % (AUTO) 0.2 % (0-2); EOSINOPHILS % (AUTO) 0.7 % (0-6); HEMATOCRIT 53.3 % (37.9-51.0); HEMOGLOBIN 18.7 g/dL (13.5-17.0); LYMPHOCYTES % (AUTO) 10.2 % (13-45); MEAN CORPUSCULAR HEMOGLOBIN 32.1 pg (27.0-33.4); MEAN CORPUSCULAR VOLUME 92 fl (80-97); MONOCYTES % (AUTO) 7.5 % (3-13); PLATELET COUNT 332 10^3/uL (150-450); RED CELL DISTRIBUTION WIDTH 12.7 % (11.5-14.0); SEGMENTED NEUTROPHILS % (AUTO) 81.4 % (42-78); TOTAL CELLS COUNTED % (AUTO) 100 %; WHITE BLOOD COUNT 10.7 10^3/uL (4.0-10.5)
[2018-02-14 16:23] LABS: ALANINE AMINOTRANSFERASE 28 U/L (21-72); ALBUMIN 5.3 g/dL (3.5-5.0); ALKALINE PHOSPHATASE 60 U/L (38-126); ANION GAP 15 (5-19); ASPARTATE AMINO TRANSFERASE 20 U/L (17-59); BILIRUBIN,DIRECT 0.4 mg/dL (0.0-0.4); BILIRUBIN,TOTAL 1.2 mg/dL (0.2-1.3); BLOOD UREA NITROGEN 19 mg/dL (7-20); CALCIUM 10.2 mg/dL (8.4-10.2); CARBON DIOXIDE 28 mmol/L (22-30); CHLORIDE 99 mmol/L (98-107); GLUCOSE 97 mg/dL (75-110); LIPASE 40.2 U/L (23-300); SODIUM 142.4 mmol/L (137-145); TOTAL PROTEIN 8.5 g/dL (6.3-8.2)
[2018-02-14] MEDS ORDERED: HALOPERIDOL LACTATE INJ 5 MG/1 ML VIAL IV ONE (16:41)
[2018-02-14] MEDS ORDERED: CAPSAICIN 0.025% CREAM 60 GM TP ONE (16:41)
[2018-02-14] MEDS ORDERED: NORMAL SALINE 1000 ML 1,000 ML IV ONE (16:49)
[2018-02-14 16:57] LABS: APPEARANCE,URINE SLIGHTLY-CLOUDY; BILIRUBIN,URINE NEGATIVE (NEGATIVE); COLOR,URINE AMBER; GLUCOSE, URINE NEGATIVE (NEGATIVE); KETONES,URINE 20 mg/dL (NEGATIVE); LEUKOCYTE ESTERASE,URINE NEGATIVE (NEGATIVE); NITRITE,URINE NEGATIVE (NEGATIVE); PROTEIN,URINE NEGATIVE (NEGATIVE); URINE SPECIFIC GRAVITY 1.031
[2018-02-14 17:10] LABS: URINE AMPHETAMINES SCREEN NEGATIVE; URINE BARBITURATES SCREEN NEGATIVE; URINE BENZODIAZEPINES SCREEN NEGATIVE; URINE COCAINE SCREEN NEGATIVE; URINE MARIJUANA (THC) SCREEN UNCONFIRMED POSITIVE; URINE METHADONE SCREEN NEGATIVE; URINE PHENCYCLIDINE SCREEN NEGATIVE
--- NOTE | 2018-02-14 17:37 | RADIOLOGY REPORT (SQ) ---
EXAM DESCRIPTION: CT ABD/PELVIS WITH IV ONLY COMPLETED DATE/TIME: 02/14/2018 5:25 pm REASON FOR STUDY: Abdominal pain COMPARISON: None. TECHNIQUE: CT scan of the abdomen and pelvis performed using helical scanning technique with dynamic intravenous contrast injection. No oral contrast. Images reviewed with lung, soft tissue, and bone windows. Reconstructed coronal and sagittal MPR images reviewed. Delayed images for evaluation of the urinary system also acquired. All images stored on PACS. All CT scanners at this facility use dose modulation, iterative reconstruction, and/or weight based d osing when appropriate to reduce radiation dose to as low as reasonably achievable (ALARA). [facility]: Dose Right [facility]: CareDose [facility]: Dose Right [facility]: Teradose 4D [facility]: Stuffle CONTRAST TYPE AND DOSE: 74 mL Isovue 370- low osmolar. RENAL FUNCTION: None required. The patient is less than 50 years old. RADIATION DOSE: CT Rad equipment meets quality standard of care and radiation dose reduction techniq ues were employed. CTDIvol: 5.3 - 7.0 mGy. DLP: 669 mGy-cm.. LIMITATIONS: None. FINDINGS: LOWER CHEST: No significant findings. No nodules or infiltrates. LIVER: Normal size. No masses. No dilated ducts. SPLEEN: Normal size. No focal lesions. PANCREAS: No masses. No significant calcifications. No adjacent inflammation or peripancreatic fluid collections. Pancreatic duct not dilated. GALLBLADDER: No identified stones by CT criteria. No inflammatory changes to suggest cholecystitis. ADRENAL GLANDS: No significant masses or asymmetry. RIGHT KIDNEY AND URETER: No solid masses. No significant calcifications. No hydronephrosis or hyd roureter. LEFT KIDNEY AND URETER: No solid masses. No significant calcifications. No hydronephrosis or hydr oureter. AORTA AND VESSELS: No aneurysm. No dissection. Renal arteries, SMA, celiac without stenosis. RETROPERITONEUM: No retroperitoneal adenopathy, hemorrhage or masses. BOWEL AND PERITONEAL CAVITY: No masses or inflammatory changes. No free fluid or peritoneal masses. APPENDIX: Normal. PELVIS: No mass. No free fluid. Normal bladder. ABDOMINAL WALL: No masses. No hernias. BONES: No significant or acute findings. OTHER: No other significant finding. IMPRESSION: NO SIGNIFICANT OR ACUTE FINDING IN THE ABDOMEN OR PELVIS ON CT SCAN WITH IV CONTRAST. TECHNICAL DOCUMENTATION: JOB ID: [id number] Quality ID # [id number]: Final reports with documentation of one or more dose reduction techniques (e.g., Au tomated exposure control, adjustment of the mA and/or kV according to patient size, use of iterative reconstruction technique) 2010 [employer]- All Rights Reserved Reading location - IP/workstation name: [email or web address]
--- NOTE | 2018-02-14 18:06 | ER Document Report ---
ED GI/ - General Chief Complaint: Abdominal Pain Stated Complaint: STOMACH PAIN,NAUSEA Time Seen by Provider: 02/14/18 15:23 Mode of Arrival: Ambulatory Notes: The patient is a 23-year-old male, past medical history bipolar, marijuana smoker, gastritis, presents with 6 weeks of nausea, vomiting and epigastric pain. He had a EGD performed by Dr. Tanner few days ago that showed gastritis and esophagitis. He is taking Pepcid. Patient says that hot showers help his nausea and vomiting and his mom mentioned that he will be in the shower for hours. Sent to the ER by Dr. Tanner for a CT scan and blood work. Patient has lost 20 pounds over the past 6 weeks and is not eating much. Denies fevers, hematemesis, diarrhea, constipation or chest pain. TRAVEL OUTSIDE OF THE [place] IN LAST 30 DAYS: No - Related Data Allergies/Adverse Reactions: No Known Allergies Allergy (Verified 02/14/18 14:42) Past Medical History - General Information source: Patient, Parent - Social History Smoking Status: Current Every Day Smoker Chew tobacco use (# tins/day): No Frequency of alcohol use: None Drug Abuse: Marijuana Family History: Reviewed & Not Pertinent Patient has suicidal ideation: No Patient has homicidal ideation: No - Past Medical History Cardiac Medical History: Denies: Hx Coronary Artery Disease, Hx Heart Attack, Hx Hypertension Pulmonary Medical History: Denies: Hx Asthma, Hx Bronchitis, Hx COPD, Hx Pneumonia Neurological Medical History: Denies: Hx Cerebrovascular Accident, Hx Seizures Renal/ Medical History: Denies: Hx Peritoneal Dialysis Musculoskeltal Medical History: Denies Hx Arthritis Psychiatric Medical History: Reports: Hx Attention Deficit Hyperactivity Disorder - Immunizations Immunizations up to date: Yes Hx Diphtheria, Pertussis, Tetanus Vaccination: Yes Review of Systems - Review of Systems Notes: REVIEW OF SYSTEMS: CONSTITUTIONAL: -fevers, -chills EENT: -eye pain, -difficulty swallowing, -nasal congestion CARDIOVASCULAR: -chest pain, -syncope. RESPIRATORY: -cough, -SOB GASTROINTESTINAL: +epigastric abdominal pain, +nausea, +vomiting, -diarrhea GENITOURINARY: -dysuria, -hematuria MUSCULOSKELETAL: -back pain, -neck pain SKIN: -rash or skin lesions. HEMATOLOGIC: -easy bruising or bleeding. LYMPHATIC: -swollen, enlarged glands. NEUROLOGICAL: -altered mental status or loss of consciousness, -headache, - neurologic symptoms PSYCHIATRIC: -anxiety, -depression. ALL OTHER SYSTEMS REVIEWED AND NEGATIVE. Physical Exam - Vital signs Vitals: Temp Pulse Resp BP Pulse Ox 98.4 F 98 18 139/93 H 98 02/14/18 14:49 02/14/18 14:49 02/14/18 14:49 02/14/18 14:49 02/14/18 14:49 - Notes Notes: PHYSICAL EXAMINATION: GENERAL: Well-appearing, well-nourished and in no acute distress. Hiding under his own blanket on stretcher. HEAD: Atraumatic, normocephalic. EYES: Pupils equal round and reactive to light, extraocular movements intact, sclera anicteric, conjunctiva are normal. ENT: nares patent, oropharynx clear without exudates. Moist mucous membranes. NECK: Normal range of motion, supple without lymphadenopathy LUNGS: Breath sounds clear to auscultation bilaterally and equal. No wheezes rales or rhonchi. HEART: Regular rate and rhythm without murmurs ABDOMEN: Soft, mild epigastric tender, normoactive bowel sounds. No guarding, no rebound. No masses appreciated. EXTREMITIES: Normal range of motion, no pitting or edema. No cyanosis. NEUROLOGICAL: Cranial nerves grossly intact. Normal speech, normal gait. Normal sensory and motor exams. PSYCH: Normal mood, normal affect. SKIN: Warm, Dry, normal turgor, no rashes or lesions noted. Course - Re-evaluation Re-evalutation: Patient appears well. Blood work does not show signs of emergent pathology and CT of the abdomen and pelvis also did not show any acute abnormalities. Spoke to mom, grandmother and patient about concern for cannabinoid hyperemesis due to his marijuana use, chronic nausea and vomiting and relief of symptoms with hot showers. Instructed him to stop using marijuana and continue following up with his GI doctor. - Vital Signs Vital signs: Temp Pulse Resp BP Pulse Ox 98.3 F 81 18 123/63 98 02/14/18 18:38 02/14/18 18:38 02/14/18 18:38 02/14/18 18:38 02/14/18 18:38 - Laboratory Result Diagrams: 02/14/18 15:40 02/14/18 15:40 Laboratory results interpreted by me: 0502/14/18 02/14/18 15:40 15:40 15:40 WBC 10.7 H RBC 5.80 H Hgb 18.7 H Hct 53.3 H Seg Neutrophils % 81.4 H Lymphocytes % 10.2 L Absolute Neutrophils 8.7 H Total Protein 8.5 H Albumin 5.3 H Urine Ketones 20 H Urine Urobilinogen 4.0 H - Diagnostic Test Radiology reviewed: Image reviewed, Reports reviewed Radiology results interpreted by me: CT A/P: NAD Discharge - Discharge Clinical Impression: Epigastric abdominal pain, Cannabinoid hyperemesis syndrome Nausea and vomiting Qualifiers: Vomiting type: unspecified Vomiting Intractability: non-intractable Qualified Code(s): R11.2 - Nausea with vomiting, unspecified Condition: Stable Disposition: HOME, SELF-CARE Additional Instructions: Continue the Phenergan and PPI to help with your nausea and epigastric pain. Keep the appointment for the HIDA scan in [address] scan and blood work did not show any evidence of dangerous abnormalities. I suspect a component of your frequent nausea and vomiting may be related to your marijuana use, so continue to try to cut down. You may use capsaicin cream on your abdomen to help with your nausea, since hot showers help your nausea. Follow-up with your GI doctor as scheduled. ABDOMINAL PAIN: There are many causes of abdominal pain. Pain can mean a serious problem requiring surgery (such as appendicitis). It can also be an innocent problem that goes away on its own (such as a viral infection). Often, time must pass to determine the cause of pain. The physician does not feel that hospitalization is necessary, at present. Things may change within the next 24 hours. Call the doctor or come back for re- examination if any problems occur, such as: (1) Pain that becomes more severe, steady, or becomes concentrated in one specific area. Also, pain that is more severe with movement or coughing. (2) Vomiting that persists or becomes more frequent. (3) Blood in the vomitus, urine, or bowel movements. Blood in the stool may have a tarry or black appearance. (4) Shaking chills or fever greater than 100 degrees F. (5) The abdomen becomes more distended or swollen. (6) Bowel movements cease. (7) Failure to improve as expected. NORMAL EXAM AND WORKUP: At this time, your examination and workup show no significant abnormality. No significant abnormal physical findings are noted. All laboratory, EKG, and imaging (x-ray, CT scans, ultrasound) studies that were ordered show no significant abnormality. Although your examination and all studies that were ordered showed no significant abnormal finding, there are no examinations and no studies that are 100% accurate. There is always the possibility that some abnormality could exist and not be detected with physical examination or within the limits and capabilities of laboratory and other studies. You should return or follow up as you were instructed on your visit today for further evaluation if your symptoms do not resolve. ANTINAUSEA MEDICATION: You have been given a medication to suppress nausea and vomiting. This type of medication can be given as a shot, pill, or suppository. It will usually last for many hours. Pills and shots usually last six to eight hours, suppositories last about 12 hours. For the typical illness, only one or two doses of the medication may be necessary. Mild lightheadedness may occur. This type of medicine can cause drowsiness. Do not drive or operate dangerous machinery while under its influence. Do not mix with alcohol. See your doctor at once if you have muscle spasms or tightness, or uncontrollable motions (particularly of the neck, mouth, or jaw). Persistent vomiting or severe lightheadedness should also be evaluated by the physician. FOLLOW-UP CARE: If you have been referred to a physician for follow-up care, call the physician s office for an appointment as you were instructed or within the next two days. If you experience worsening or a significant change in your symptoms, notify the physician immediately or return to the Emergency Department at any time for re-evaluation. FOLLOW-UP CARE: You should return for re-evaluation in 12 hours. This follow-up visit is important. If you are unable to return, or feel that the return visit is unnecessary, please call us. Prescriptions: Capsaicin 60 gm TP Q8H PRN #1 cream.gm. PRN Reason: Forms: Elevated Blood Pressure Referrals: NAYA LOUISE MD [Primary Care Provider] - Follow up as needed RADHA TANNER MD [ACTIVE STAFF] - Follow up as needed
[2018-02-14 18:41] VITALS: BP 123/63
== END 2018-02-14 18:42 | disposition home or self-care (01) ==
LOC: ER 14:40
DX: F12.188 Cannabis abuse with other cannabis-induced disorder (principal); R11.2 Nausea with vomiting, unspecified; R10.13 Epigastric pain; F17.200 Nicotine dependence, unspecified, uncomplicated
CPT/HCPCS: 99284; 96361; 96374; 96375; 36415; 83690; 85025; 80053; 81001; 80307; 74177; S0119; J1630; J3490; J7030

== ENCOUNTER → 2018-02-19 | Outpatient (CLI) | payer SELFPAY ==
--- NOTE | 2018-02-19 15:50 | RADIOLOGY REPORT (SQ) ---
EXAM DESCRIPTION: NM HIDA SCAN WITH CCK COMPLETED DATE/TIME: 02/19/2018 3:22 pm REASON FOR STUDY: R11.14 BILIOUS VOMITING R11.14 BILIOUS VOMITING COMPARISON: Abdominal ultrasound dated 01/04/2018 RADIONUCLIDE AND DOSE: DOSAGE RADIONUCLIDE: 5.16 millicuries Tc99m Mebrofenin. DOSAGE CCK: 1.4 micrograms. DOSAGE MORPHINE: Not required. The route of agent administration: Intravenous TECHNIQUE: Serial imaging right upper quadrant up to 60 minutes following injection of radionuclide. CCK injected after gallbladder visualized. LIMITATIONS: None. FINDINGS: LIVER: Normal visualization without areas of photopenia. INTRAHEPATIC BILE DUCTS: Normal size and no delay in visualization. COMMON BILE DUCT: Normal without dilatation. GALLBLADDER: Normal visualization. Calculated ejection fraction of 40%. Normal range is greater th an 35%. PHYSICAL RESPONSE: Patients presenting complaint was reproduced. OTHER: No other significant finding. IMPRESSION: NORMAL STUDY WITHOUT CYSTIC OR COMMON DUCT OBSTRUCTION. NORMAL GALLBLADDER EJECTION FRA CTION. NO EVIDENCE FOR BILIARY DYSKINESIS. TECHNICAL DOCUMENTATION: JOB ID: [id number] [id number] [email or web address]- All Rights Reserved Reading location - IP/workstation name: [email or web address]
== END ==
LOC: RAD 14:31
PROVIDERS: ATTEND Internal Medicine Gastroenterology
DX: R11.14 Bilious vomiting (principal)
CPT/HCPCS: 78227; J2805; A9537; Q9969

== ENCOUNTER 2018-07-11 08:36 | Emergency (ER) | payer OTHER ==
[2018-07-11] MEDS ORDERED: HALOPERIDOL 2 MG TABLET PO ONE (09:37)
--- NOTE | 2018-07-11 09:37 | ER Document Report ---
ED Medical Screen (RME) - General Chief Complaint: Abdominal Pain Stated Complaint: ABDOMINAL PAIN Time Seen by Provider: 07/11/18 09:37 Mode of Arrival: Ambulatory Information source: Patient TRAVEL OUTSIDE OF THE [place] IN LAST 30 DAYS: No - HPI Patient complains to provider of: reflux Onset: Other - 20-year-old male with a history of marijuana abuse as well as reflux has been treated in the past with Prilosec with good results. He was previously seen by rope tow operator who performed an endoscopy, was told that he did have reflux. He stopped taking the Prilosec because he has started to feel better. He notes that he continues to smoke marijuana every single day, he does get relief when he is in a hot shower and as a result he has been taking many hot showers sometimes several hours at a time. Says that he is going to continue smoke. Nothing makes his symptoms much better other than the shower. Eating sometimes makes it worse. He feels like he is got developed persistently denies any fevers or chills however. - Related Data Allergies/Adverse Reactions: No Known Allergies Allergy (Verified 07/11/18 09:36) Past Medical History - General Information source: Patient - Social History Chew tobacco use (# tins/day): No Frequency of alcohol use: None Drug Abuse: None - Past Medical History Cardiac Medical History: Denies: Hx Coronary Artery Disease, Hx Heart Attack, Hx Hypertension Pulmonary Medical History: Denies: Hx Asthma, Hx Bronchitis, Hx COPD, Hx Pneumonia Neurological Medical History: Denies: Hx Cerebrovascular Accident, Hx Seizures Renal/ Medical History: Denies: Hx Peritoneal Dialysis Musculoskeltal Medical History: Denies Hx Arthritis Psychiatric Medical History: Reports: Hx Attention Deficit Hyperactivity Disorder Past Surgical History: Reports: Hx Abdominal Surgery - as child - Immunizations Immunizations up to date: Yes Hx Diphtheria, Pertussis, Tetanus Vaccination: Yes Review of Systems - Review of Systems -: Yes All other systems reviewed and negative Physical Exam - Vital signs Vitals: Temp Pulse Resp BP Pulse Ox 97.3 F 70 15 121/77 99 07/11/18 08:40 07/11/18 08:40 07/11/18 08:40 07/11/18 08:40 07/11/18 08:40 - General General appearance: Appears well In distress: None - HEENT Head: Normocephalic Eyes: Normal Conjunctiva: Normal Cornea: Normal Extraocular movements intact: Yes Eyelashes: Normal Pupils: PERRL - Respiratory Respiratory status: No respiratory distress Chest status: Nontender Breath sounds: Normal Chest palpation: Normal - Cardiovascular Rhythm: Regular Heart sounds: Normal auscultation Murmur: No - Abdominal Inspection: Normal Distension: No distension Tenderness: Nontender Organomegaly: No organomegaly - Back Back: Normal - Extremities General upper extremity: Normal inspection, Nontender, Normal ROM, Normal strength General lower extremity: Normal inspection, Nontender, Normal ROM, Normal strength - Neurological Neuro grossly intact: Yes Cognition: Normal Orientation: AAOx4 [place] Coma Scale Eye Opening: Spontaneous [place] Coma Scale Verbal: Oriented [place] Coma Scale Motor: Obeys Commands [place] Coma Scale Total: 15 Speech: Normal Cranial nerves: Normal Motor strength normal: LUE, RUE, LLE, RLE - Psychological Associated symptoms: Other - Odd affect however appropriate Course - Re-evaluation Re-evalutation: This 23-year-old man presents with a history of cannabinoid hyperemesis syndrome as well as reflux. He stopped taking his reflux medication and as a result has had a return of his symptoms. He also is now continually smoking marijuana daily. He notes that he seen a rope tow operator who told him that he did have gastritis, his gallbladder also was noted to be functional with normal contraction and no obvious stones or sludging. I spoke to his mother on the phone about him she notes that he is going to "do what he wants to do" and that he still smokes marijuana every day. I did speak to him at length about his disease. In short- Patient with cannabinoid hyperemesis syndrome, gets relief and hot showers. I counseled him regarding the cessation of marijuana, he notes that he will likely continue to smoke. His abdominal examination is benign. He is otherwise at his baseline. We will plan for discharge with return precautions. Gave prescription for Prilosec. - Vital Signs Vital signs: Temp Pulse Resp BP Pulse Ox 98.5 F 75 15 124/84 99 07/11/18 11:26 07/11/18 11:26 07/11/18 08:40 07/11/18 11:26 07/11/18 11:26 Doctor's Discharge - Discharge Clinical Impression: Cannabinoid hyperemesis syndrome, Reflux esophagitis Condition: Good Disposition: HOME, SELF-CARE Instructions: Antinausea Medication ([facility]), Prilosec (Acid Pump Inhibitor) ([facility]) Prescriptions: Omeprazole Magnesium [Prilosec Otc] 20 mg PO BID #30 tablet.dr Referrals: RADHA TANNER MD [ACTIVE STAFF] - Follow up as needed
[2018-07-11] MEDS ORDERED: ONDANSETRON HCL INJ/PF 4 MG/2 ML SDV IV ONE (09:38)
[2018-07-11] MEDS ORDERED: NORMAL SALINE 1000 ML 1,000 ML IV ONE (09:38)
[2018-07-11] MEDS ORDERED: MAG HYDROX/AL HYDROX/SIMETH SUSP 30 ML UDCUP PO ONE (09:51)
[2018-07-11] MEDS ORDERED: METOCLOPRAMIDE HCL ORAL SOLN 10 MG/10 ML UDCUP PO ONE (09:51)
[2018-07-11] MEDS ORDERED: LIDOCAINE 2% VISCOUS SOLN 20 ML UDCUP PO ONE (09:51)
[2018-07-11] MEDS ORDERED: HALOPERIDOL 1 MG TABLET PO ONE (10:15)
[2018-07-11 11:28] VITALS: BP 124/84
== END 2018-07-11 11:38 | disposition home or self-care (01) ==
LOC: ER 08:36
DX: F12.988 Cannabis use, unspecified with other cannabis-induced disorder (principal); R11.10 Vomiting, unspecified; R10.9 Unspecified abdominal pain; K21.0 Gastro-esophageal reflux disease with esophagitis
CPT/HCPCS: 99284; 96361; 96374; J3490 ×2; J2405; J7030

== ENCOUNTER 2019-01-18 17:17 | Emergency (ER) | payer OTHER ==
[2019-01-18 17:37] VITALS: BP 124/76
--- NOTE | 2019-01-18 17:42 | ER Document Report ---
ED Medical Screen (RME) - General Chief Complaint: Chest Pain Stated Complaint: STOMACH/CHEST PAIN Time Seen by Provider: 01/18/19 17:41 Mode of Arrival: Wheelchair Information source: Patient - And girlfriend Notes: 23-year-old male presents the ED for complaint of abdominal pain dry heaving chest pain and feeling like this that was stuck in his throat. He states about 1 PM the symptoms started he has not had any fever. He states he has been dry heaving but cannot throw anything up. He is alert and oriented when you wake him up otherwise he leans his head forward in the chair. Patient states he smokes half pack a day does not drink and does not do any drugs. He lives alone. He states he does not have any past medical history or surgical history. I have greeted and performed a rapid initial assessment of this patient. A comprehensive ED assessment and evaluation of the patient, analysis of test results and completion of medical decision making process will be conducted by an additional ED providers. TRAVEL OUTSIDE OF THE [place] IN LAST 30 DAYS: No - Related Data Allergies/Adverse Reactions: No Known Allergies Allergy (Verified 01/18/19 17:36) Past Medical History - Social History Frequency of alcohol use: None Drug Abuse: None - Past Medical History Cardiac Medical History: Denies: Hx Coronary Artery Disease, Hx Heart Attack, Hx Hypertension Pulmonary Medical History: Denies: Hx Asthma, Hx Bronchitis, Hx COPD, Hx Pneumonia Neurological Medical History: Denies: Hx Cerebrovascular Accident, Hx Seizures Renal/ Medical History: Denies: Hx Peritoneal Dialysis Musculoskeltal Medical History: Denies Hx Arthritis Psychiatric Medical History: Reports: Hx Attention Deficit Hyperactivity Disorder Past Surgical History: Reports: Hx Abdominal Surgery - as child - Immunizations Immunizations up to date: Yes Hx Diphtheria, Pertussis, Tetanus Vaccination: Yes Physical Exam - Vital signs Vitals: Temp Pulse Resp BP Pulse Ox 98.0 F 72 16 124/76 98 01/18/19 17:36 01/18/19 17:36 01/18/19 17:36 01/18/19 17:36 01/18/19 17:36 Course - Vital Signs Vital signs: Temp Pulse Resp BP Pulse Ox 98.0 F 72 16 124/76 98 01/18/19 17:36 01/18/19 17:36 01/18/19 17:36 01/18/19 17:36 01/18/19 17:36
[2019-01-18] MEDS ORDERED: ONDANSETRON HCL INJ/PF 4 MG/2 ML SDV IV ONE (17:43)
[2019-01-18] MEDS ORDERED: NORMAL SALINE 1000 ML 1,000 ML IV ONE (17:43)
[2019-01-18 18:18] LABS: HEMATOCRIT 45.9 % (37.9-51.0); HEMOGLOBIN 16.1 g/dL (13.5-17.0); MEAN CORPUSCULAR HGB CONC 35.1 g/dL (32.0-36.0); MEAN CORPUSCULAR VOLUME 91 fl (80-97); PLATELET COUNT 312 10^3/uL (150-450); RED BLOOD COUNT 5.04 10^6/uL (4.35-5.55); RED CELL DISTRIBUTION WIDTH 12.6 % (11.5-14.0); WHITE BLOOD COUNT 11.6 10^3/uL (4.0-10.5)
[2019-01-18 18:33] LABS: ABSOLUTE LYMPHOCYTES# (MANUAL) 0.6 10^3/uL (0.5-4.7); ABSOLUTE MONOCYTES # (MANUAL) 0.2 10^3/uL (0.1-1.4); ABSOLUTE NEUTROPHILS# (MANUAL) 10.8 10^3/uL (1.7-8.2); BAND NEUTROPHILS % (MANUAL) 2 % (3-5); BASOPHILS % (MANUAL) 0 % (0-2); EOSINOPHILS % (MANUAL) 0 % (0-6); LYMPHOCYTES % (MANUAL) 5 % (13-45); MONOCYTES % (MANUAL) 2 % (3-13); SEGMENTED NEUTROPHILS % (MAN) 91 % (42-78); TOTAL CELLS COUNTED 100
[2019-01-18 18:35] LABS: ALANINE AMINOTRANSFERASE 42 U/L (21-72); ALBUMIN 4.8 g/dL (3.5-5.0); ALKALINE PHOSPHATASE 56 U/L (38-126); ANION GAP 14 (5-19); ASPARTATE AMINO TRANSFERASE 28 U/L (17-59); BILIRUBIN,DIRECT 0.4 mg/dL (0.0-0.4); BILIRUBIN,TOTAL 1.2 mg/dL (0.2-1.3); BLOOD UREA NITROGEN 15 mg/dL (7-20); CALCIUM 9.9 mg/dL (8.4-10.2); CARBON DIOXIDE 24 mmol/L (22-30); CHLORIDE 104 mmol/L (98-107); GLUCOSE 139 mg/dL (75-110); LIPASE 17.8 U/L (23-300); POTASSIUM 3.8 mmol/L (3.6-5.0); SODIUM 141.5 mmol/L (137-145); TOTAL PROTEIN 7.3 g/dL (6.3-8.2)
[2019-01-18 18:36] LABS: PLATELET CLUMPS PRESENT; RBC MORPHOLOGY COMMENT NORMO-CYTIC/CHROMIC
--- NOTE | 2019-01-18 19:31 | EKG REPORT ---
SEVERITY:- ABNORMAL ECG - SINUS ARRHYTHMIA, RATE 56-96 PROBABLE LEFT ATRIAL ABNORMALITY INCOMPLETE RIGHT BUNDLE BRANCH BLOCK : Confirmed by: Tianna Pardo MD 18-Jan-2019 19:30:52
[2019-01-18] MEDS ORDERED: MAG HYDROX/AL HYDROX/SIMETH SUSP 30 ML UDCUP PO ONE (19:52)
[2019-01-18] MEDS ORDERED: LIDOCAINE 2% VISCOUS SOLN 20 ML UDCUP PO ONE (19:52)
[2019-01-18] MEDS ORDERED: METOCLOPRAMIDE HCL ORAL SOLN 10 MG/10 ML UDCUP PO ONE (19:52)
--- NOTE | 2019-01-18 20:00 | ER Document Report ---
ED General - General Chief Complaint: Chest Pain Stated Complaint: STOMACH/CHEST PAIN Time Seen by Provider: 01/18/19 17:41 Mode of Arrival: Wheelchair Information source: Patient Notes: Patient is a 23-year-old male with past medical history including cyclical vomiting syndrome. Patient presents today with complaints of vomiting and epigastric pain. He states that symptoms started just a few hours prior to arrival. He denies any lower abdominal pain, fever or diarrhea. He states he had a normal bowel movement earlier this morning. Patient denies any other medical history. His significant other is at the bedside and states that he gets the symptoms after he has been doing a lot of "strenuous activity". Patient reports that he usually gets a GI cocktail which helps resolve his symptoms. TRAVEL OUTSIDE OF THE [place] IN LAST 30 DAYS: No - Related Data Allergies/Adverse Reactions: No Known Allergies Allergy (Verified 01/18/19 17:36) Past Medical History - General Information source: Patient - Social History Smoking Status: Current Every Day Smoker Frequency of alcohol use: None Drug Abuse: None Family History: Reviewed & Not Pertinent Patient has suicidal ideation: No Patient has homicidal ideation: No - Past Medical History Cardiac Medical History: Denies: Hx Coronary Artery Disease, Hx Heart Attack, Hx Hypertension Pulmonary Medical History: Denies: Hx Asthma, Hx Bronchitis, Hx COPD, Hx Pneumonia Neurological Medical History: Denies: Hx Cerebrovascular Accident, Hx Seizures Renal/ Medical History: Denies: Hx Peritoneal Dialysis GI Medical History: Reports: Hx Gastroesophageal Reflux Disease, Other - Cyclical vomiting syndrome Musculoskeletal Medical History: Denies Hx Arthritis Psychiatric Medical History: Reports: Hx Attention Deficit Hyperactivity Disorder Past Surgical History: Reports: Hx Abdominal Surgery - as child - Immunizations Immunizations up to date: Yes Hx Diphtheria, Pertussis, Tetanus Vaccination: Yes Review of Systems - Review of Systems Constitutional: No symptoms reported. denies: Chills, Fever EENT: No symptoms reported Cardiovascular: No symptoms reported Respiratory: No symptoms reported Gastrointestinal: Abdominal pain - Epigastric, Nausea, Vomiting. denies: Diarrhea Male Genitourinary: No symptoms reported Musculoskeletal: No symptoms reported Skin: No symptoms reported Hematologic/Lymphatic: No symptoms reported Neurological/Psychological: No symptoms reported Physical Exam - Vital signs Vitals: Temp Pulse Resp BP Pulse Ox 98.0 F 72 16 124/76 98 01/18/19 17:36 01/18/19 17:36 01/18/19 17:36 01/18/19 17:36 01/18/19 17:36 - Notes Notes: PHYSICAL EXAMINATION: GENERAL: Well-nourished and in no acute distress. HEAD: Atraumatic, normocephalic. EYES: Pupils equal round and reactive to light, extraocular movements intact, sclera anicteric, conjunctiva are normal. ENT: Nares patent, oropharynx clear without exudates. Moist mucous membranes. NECK: Normal range of motion, supple without lymphadenopathy LUNGS: Breath sounds clear to auscultation bilaterally and equal. No wheezes rales or rhonchi. HEART: Regular rate and rhythm without murmurs ABDOMEN: Soft, nontender, nondistended abdomen. No guarding, no rebound. No masses appreciated. Musculoskeletal: Normal range of motion, no pitting or edema. No cyanosis. NEUROLOGICAL: Cranial nerves grossly intact. Normal speech, normal gait. [place] l sensory, motor exams PSYCH: Normal mood, normal affect. SKIN: Warm, Dry, normal turgor, no rashes or lesions noted. Course - Re-evaluation Re-evalutation: CBC with mild nonspecific leukocytosis, likely secondary to vomiting. C omprehensive metabolic panel is unremarkable. Patient has been unable to provide a urine sample. States that he has no urinary symptoms and would rather not give one. Patient denies any current marijuana use. He has been diagnosed with cyclical vomiting disorder due to use of marijuana in the past. Patient reports his symptoms have improved after administration of the Zofran by the triage provider. He is asking for a GI cocktail as he states that has helped in the past. Patient was given a GI cocktail here in the emergency department with complete resolution of his epigastric pain. He has not had any episodes of vomiting while in the department. And his vital signs are within normal limits. Patient will be discharged home, encouraged him to follow-up with primary care provider to further work-up the cause of his recurrent vomiting. - Vital Signs Vital signs: Temp Pulse Resp BP Pulse Ox 98.0 F 72 16 124/76 98 01/18/19 17:36 01/18/19 17:36 01/18/19 17:36 01/18/19 17:36 01/18/19 17:36 - Laboratory Result Diagrams: 01/18/19 18:00 01/18/19 18:00 Laboratory results interpreted by me: 01/18/19 01/18/19 18:00 18:00 WBC 11.6 H Seg Neuts % (Manual) 91 H Band Neutrophils % 2 L Lymphocytes % (Manual) 5 L Monocytes % (Manual) 2 L Abs Neuts (Manual) 10.8 H Glucose 139 H Lipase 17.8 L Discharge - Discharge Clinical Impression: GERD (gastroesophageal reflux disease) Qualifiers: Esophagitis presence: esophagitis presence not specified Qualified Code(s): K21.9 - Gastro-esophageal reflux disease without esophagitis Vomiting Qualifiers: Vomiting type: unspecified Vomiting Intractability: unspecified Nausea presence: unspecified Qualified Code(s): R11.10 - Vomiting, unspecified Condition: Stable Disposition: HOME, SELF-CARE Additional Instructions: Your lab work today was normal. Your symptoms resolved after administration of both Zofran as well as the GI cocktail. I would recommend trying to take omeprazole 20 mg daily you can buy this [id number]. Use the nausea medication for any nausea or vomiting. Return to the emergency department with any new or worsening symptoms to include development of abdominal pain, persistent vomiting that is unrelieved with the nausea medication or development of fever. Please follow-up with your primary care provider for further management of your chronic nausea and vomiting. If you are still smoking marijuana I would highly advise stopping this as this is possibly a contributing factor. Prescriptions: Promethazine HCl [Phenergan 25 mg Tablet] 1 - 2 tab PO Q6H PRN #15 tablet PRN Reason:
[2019-01-18] MEDS ORDERED: ONDANSETRON ODT 4 MG TAB (6 TAB/ER DISP) PO PRN (20:49)
== END 2019-01-18 21:04 | disposition home or self-care (01) ==
LOC: ER 17:17
DX: K21.9 Gastro-esophageal reflux disease without esophagitis (principal); R10.13 Epigastric pain; R11.2 Nausea with vomiting, unspecified; D72.829 Elevated white blood cell count, unspecified; F17.200 Nicotine dependence, unspecified, uncomplicated; Z87.19 Personal history of other diseases of the digestive system
CPT/HCPCS: 93005; 99284; 96360; 36415; 83690; 85025; 80053; 93010; J3490; J2405; J7030